=== PATIENT | female | born 1965 | race Caucasian/White ===

== ENCOUNTER 2024-01-17 17:37 | Inpatient (IN) | payer BC, SELFPAY ==
[2024-01-17] VITALS (7 sets, daily range): BP systolic 111–133; BP diastolic 60–83; PULSE 75–111; RESP 15–18; TEMP 37.6–38.3; O2SAT 97–100; BMI 21.4
[2024-01-17 18:49] LABS: Absolute Lymphocyte Count 0.98 X10^3/uL (0.83-4.51); Absolute Neutrophil Count 16.3 X10^3/uL (2.0-7.7); Basophil# 0.13 X10^3/uL; Basophil% 0.7 % (0-1); Eosinophil# 0.11 X10^3/uL; Eosinophils% 0.6 % (0-5); Hematocrit 43.1 % (37-47); Hemoglobin 14.3 g/dL (12.0-15.0); Lymphocyte # 0.98 X10^3/ul (0.83-4.51); Mean Corp Hgb Conc 33.2 g/dL (32-36); Mean Corpuscular Hgb 29.9 pg (27.0-32.0); Mean Platelet Vol. 10.4 fl (6.2-12.0); Monocyte% 9.3 % (0-10); NRBC Flagged by Analyzer 0 % (0-5); Neutrophil # 16.29 X10^3/uL (2.7-7.7); Neutrophil % 83.7 % (47-70); POSITIVE DIFFERENTIAL YES; Platelet Count 383 K/mm3 (150-450); RBC Distribution Width CV 13.1 % (11.6-14.6); Red Blood Count 4.79 M/mm3 (4.2-5.4); White Blood Count 19.4 K/mm3 (4.4-11.0)
[2024-01-17 18:52] LABS: Differential Indicated SCAN CRITERIA MET
[2024-01-17 19:05] LABS: ALB/GLOB Ratio 1.1 RATIO (0.9-2.4); AST(SGOT) 20 U/L (15-37); Alanine Aminotransfer ALT/SGPT 26 U/L (13-56); Albumin, Serum 3.7 g/dL (3.2-5.0); Alkaline Phosphatase 73 U/L (45-117); Anion Gap 8 (5-15); BUN 13 mg/dL (7-18); BUN/Creat Ratio 16.5 RATIO (10-20); Calcium,Total 9.2 mg/dL (8.5-10.1); Chloride 104 mmol/L (98-107); Creatinine, Serum 0.79 mg/dL (0.55-1.02); EST Glomerular Filtration Rate 80 mL/min (>60); Est Glom Filt Rate - Afr Amer 96 mL/min (>60); Estimated Creatinine Clearance 67.85 ml/min; Globulin 3.3 g/dL (2.2-4.2); Glucose 114 mg/dL (74-106); Lipase 54 U/L (13-75); Potassium 3.6 mmol/L (3.5-5.1); Sodium Level 136 mmol/L (136-145)
[2024-01-17 19:32] LABS: Mucous, Urine 0 SEEN /hpf (<or=2+); Red Blood Cells-Urine 0 SEEN /hpf (0-5)
[2024-01-17 19:34] LABS: Differential Comment SCANNED
[2024-01-17 19:39] LABS: Color, Urine Yellow (Yellow); Glucose, Dipstick Normal (Normal); Ketone-Dipstick Negative (Negative); Leukocyte Esterase-Dipstick 25 /ul (Negative); Nitrite-Dipstick Negative (Negative); Occult Blood-Urine 25 /ul (Negative); Protein-Dipstick Negative (Negative); Urine Bilirubin Dipstick Negative (Negative); Urine Clarity Clear (Clear); Urine Urobilinogen Normal (Normal)
[2024-01-17 20:02] LABS: Bacteria RARE /hpf (None Seen); Squamous Epithelial Cells - UA 0-5 SEEN /hpf (5-10); White Blood Cells 5-10 SEEN /hpf (0-5)
--- NOTE | 2024-01-17 20:15 | EX.ED.DYSGE1 ---
HPI History of Present Illness Chief Complaint: Abd Pain Narrative Narrative: Patient is a 58-year-old female past medical history of GERD who presents to the emergency department chief complaint of abdominal pain, fevers, chills. Patient states that on 01/01/2024 she had colon surgery of a [facility] as she had a colonoscopy and had found a polyp that they could not remove here therefore they referred her to [facility]. She states that they did not like that what they saw so they took her to the operating room removed portion of her colon and put the rest of her colon back together. Patient states that she has had diarrhea more than normal she states that she is having normal bowel movements before this. States that she has had fever and chills as well at home. States that she called the on-call [facility] colorectal team and they advised her to go to the emergency department to be evaluated. Patient denies any recent sick contacts. [facility] Medical History Acid reflux Home Medications ?Medication ?Instructions ?Recorded ?Last Taken ?Type lansoprazole 30 mg capsule,delayed 30 mg PO DAILY 01/17/24 Unknown History release Allergy/AdvReac Type Severity Reaction Status Date / Time No Known Allergies Allergy Verified 01/17/24 17:38 Surgical History History of colon surgery Social History Smoking Status: Never smoker ROS ROS ED ROS Narrative Constitutional: Complains of fever and chills as noted above denies any headaches, lightness, dizziness Eyes: Denies change in vision double vision blurry vision Cardiovascular: Denies chest pain or palpitations Respiratory: Denies coughing wheezing shortness of breath Abdomen: Complains of abdominal pain and nausea as noted above as well as diarrhea : Denies pain phonation, hematuria or polyuria Neurological: Denies numbness, weakness, tingling Musculoskeletal: Denies back pain Skin: Denies rashes or lesions EXAM Physical Exam Narrative Exam Narrative: General: Patient lying in bed rest comfortably did not appear to be in acute distress Head: Atraumatic, normocephalic Eyes: PERRL bilateral, EOMI bilateral, no conjunctival injection noted Neck: Soft, supple, trachea midline Cardiovascular: Regular rate and rhythm no murmurs gallops rubs noted Respiratory: Clear to auscultation bilaterally Abdomen: Soft, nondistended, diffuse tenderness to palpation, patient's surgical scars are well-healing no concern for infection Extremities: +5/5 strength noted in the bilateral upper and lower extremities Neurological: Patient following commands knew that she was at [facility] years 2023 Skin: Warm, dry, see abdomen Const Vital Signs: 01/17/24 17:38 01/17/24 18:43 01/17/24 19:26 Temperature 99.7 F H 99.8 F H 99.7 F H Temperature Source Oral Oral Oral Pulse Rate 111 H 110 H 98 Respiratory Rate 15 16 16 Blood Pressure 133/83 H 130/80 H 114/74 Blood Pressure Mean 99 96 87 Pulse Ox 100 97 99 Oxygen Delivery Method Room Air Room Air Room Air 01/17/24 20:00 01/17/24 20:46 01/17/24 22:00 Temperature 99.6 F H 99.6 F H 100.5 F H Temperature Source Oral Oral Oral Pulse Rate 75 78 81 Respiratory Rate 16 16 18 Blood Pressure 112/79 113/75 112/60 Blood Pressure Mean 90 87 77 Pulse Ox 99 99 97 Oxygen Delivery Method Room Air Room Air Room Air 01/17/24 22:48 Temperature 101 F H Temperature Source Oral Pulse Rate 91 Respiratory Rate 18 Blood Pressure 111/71 Blood Pressure Mean 84 Pulse Ox 97 Oxygen Delivery Method Room Air MDM MDM MDM Narrative Medical decision making narrative: Patient is a 58-year-old female who presents to the emergency department chief complaint of abdominal pain, fever and chills after recent colorectal surgery at the [facility]. Patient will have a workup performed here on the differential diagnose includes but not limited to intra-abdominal abscess, anastomosis leak, COVID, other viral gastroenteritis. Once workup is obtained reviewed she will be reevaluated. Patient CBC was significant for leukocytosis of 19,000, hemoglobin stable at 14.3, platelet count normal at 383. Patient sodium normal at 136, potassium normal 3.6, creatinine normal at 0.79. Patient lactic acid normal at 2, AST and ALT were 2025 respectively. Patient's lipase normal at 54. Patient's urinalysis did not reveal any evidence of infection. Patient CT abdomen pelvis with IV contrast reviewed showed suspect infectious colitis likely pseudomembranous colitis. No abscess or perforation noted. Will discuss case with on-call colorectal surgery. Patient did become febrile here she was given a gram of Tylenol. Colorectal surgery from [facility] called back I spoke with Dr. Mcbride who states that this is not a postoperative complication and she can be admitted to the hospital therefore oral vancomycin. Oral vancomycin was ordered. This case was signed out to my partner and he will discuss case with hospitalist for admission. Patient was notified is agreeable to plan all question concerns answered bedside Lab Data Labs: Laboratory Results - last 24 hr 01/17/24 01/17/24 01/17/24 18:05 19:23 22:51 WBC 19.4 H RBC 4.79 Hgb 14.3 Hct 43.1 MCV 90.0 MCH 29.9 MCHC 33.2 RDW Std Deviation 43.0 RDW Coeff of Tucker 13.1 Plt Count 383 MPV 10.4 Immature Gran % (Auto) 0.700 Neut % (Auto) 83.7 H Lymph % (Auto) 5.0 L [place] % (Auto) 9.3 Eos % (Auto) 0.6 Baso % (Auto) 0.7 Absolute Neuts (auto) 16.3 H Absolute Lymphs (auto) 0.98 Nucleated RBC % 0 Differential Comment SCANNED Diff Path Review May foll Sodium 136 Potassium 3.6 Chloride 104 Carbon Dioxide 24.0 Anion Gap 8 BUN 13 Creatinine 0.79 Estim Creat Clear Calc 67.85 Est GFR (MDRD) Af Amer 96 Est GFR (MDRD) Non-Af 80 BUN/Creatinine Ratio 16.5 Glucose 114 H Lactic Acid 2.0 1.4 Calcium 9.2 Total Bilirubin 1.00 AST 20 ALT 26 Alkaline Phosphatase 73 Total Protein 7.0 Albumin 3.7 Globulin 3.3 Albumin/Globulin Ratio 1.1 Lipase 54 Urine Color Yellow Urine Clarity Clear Urine pH 7.0 Ur Specific [place] 1.010 Urine Protein Negative Urine Glucose (UA) Normal Urine Ketones Negative Urine Occult Blood 25 H Urine Nitrite Negative Urine Bilirubin Negative Urine Urobilinogen Normal Ur Leukocyte Esterase 25 H Urine RBC 0 SEEN Urine WBC 5-10 SEEN Ur Squamous Epith Cells 0-5 SEEN Urine Bacteria RARE Urine Mucus 0 SEEN Radiography Diagnostic Testing: Clinical Impression(s) from Imaging Studies Abdomen/Pelvis CT 01/17/24 20:18 IMPRESSION: Suspect infectious colitis, likely pseudomembranous colitis. No abscess or perforation. Electronically Signed: Tyrell Hernandez MD at 22:40 EDT , Discharge Plan Triage Chief Complaint: Abd Pain ED Provider: Jonathan Gonzalez Dx/Rx/DC Orders Prescriptions: No Action lansoprazole 30 mg capsule,delayed release(DR/EC) 30 mg PO DAILY Primary Care Provider: Kaitlin Torres Referrals: Kaitlin Torres MD [Primary Care Provider] - Print Language: Ukrainian
--- NOTE | 2024-01-17 20:18 | CT_ITS ---
STUDY: CT ABDOMEN AND PELVIS WITH CONTRAST REASON FOR EXAM: Female, 58 years old. Abdominal pain recent surgery RADIATION DOSAGE (If Supplied By Facility): CTDIvol = ( 8.26 ) mGy, DLP = ( 406.76 ) mGycm TECHNIQUE: Transaxial images were obtained from the dome of the diaphragm to the symphysis pubis with oral contrast. Oral and amp; IV Gastrografin and amp; 75mL Isovue-370 was administered. Sagittal and coronal images were reconstructed. Individualized dose optimization techniques were used for this CT. COMPARISON: None. FINDINGS: The visualized lung bases are unremarkable. The visualized portions of the heart are within normal limits. Normal liver. Normal gallbladder and extrahepatic biliary system. Normal spleen. Normal pancreas. Normal bilateral adrenal glands. Normal right kidney. Normal left kidney. Normal visualized stomach. Normal small intestine. Suture line in the proximal sigmoid colon. Diffuse wall thickening of the entire colon suggestive of infectious colitis namely pseudomembranous colitis. No loculated fluid collection to stress abscess. No pneumoperitoneum to stress perforation. The appendix is visualized and appears normal. Normal abdominal aorta. Normal inferior vena cava. Normal retroperitoneum. Normal urinary bladder. Normal abdominal wall. Normal osseous structures. CT/Abdomen/Pelvis WITH Contrast IMPRESSION: Suspect infectious colitis, likely pseudomembranous colitis. No abscess or perforation. Electronically Signed: Tyrell Hernandez MD at 22:40 EDT ,
[2024-01-17 22:46] LABS: Reflex Lactate? Y
[2024-01-17] MEDS: Acetaminophen 500 MG Tablet 1000 MG PO (22:46)
[2024-01-17 23:53] LABS: Lactic Acid 1.4 mmol/L (0.4-1.9)
[2024-01-18] VITALS (7 sets, daily range): BP systolic 98–108; BP diastolic 56–68; PULSE 64–81; RESP 16–18; TEMP 36.6–37.7; O2SAT 93–99; BMI 20.5
--- NOTE | 2024-01-18 00:34 | PCM.HP.STD ---
HPI - General General Date of Admission: 01/18/24 Date of Service: 01/18/24 Chief Complaint: Fevers, Chills and Abdominal Pain. HPI Narrative MICHI MARSHALL, is a 58 F with a past medical history of GERD; on lansoprazole and recent colonoscopy; with subsequent discovery of polyp and recent polypectomy at [facility] with the patient reporting the colorectal surgeon did not like what he saw so they took her to the OR and removed part of her colon who presents to [facility] ER complaining of fever, chills and abdominal pain. Ms. Marshall reports her symptoms began approximately one day prior to admission with the abrupt-onset of severe, voluminous watery and nonbloody diarrhea. She also admits to fever, chills and nausea so she then called the [facility] Colorectal Team and they advised her to go to the ER for further evaluation and treatment. There was no report of vomiting, dysuria, back pain, headache, chest pain or SOB but she does admit to generalized cramping abdominal pain. She denies recent known sick contacts, recent antibiotics or recent travel. The ER physician spoke to the colorectal surgeon about the CT results positive for colitis - suspected to be of infectious origin with leukocytosis of 19.4K present on admission with PCR stool studies returning positive for Clostridium difficle. She was then admitted to the general medical floor for ongoing care for a stay that is expected to extend beyond 2 midnights. [facility] Medical History Acid reflux Home Medications ?Medication ?Instructions ?Recorded ?Last Taken ?Type lansoprazole 30 mg capsule,delayed 30 mg PO DAILY 01/17/24 Unknown History release Allergy/AdvReac Type Severity Reaction Status Date / Time No Known Allergies Allergy Verified 01/17/24 17:38 Surgical History History of colon surgery Social History Smoking Status: Never smoker ROS ROS Narrative Review of Systems: Constitutional: Patient admits to fever and chills as per HPI. Eyes: Patient denies changes in vision or discharge from eyes. ENT: Patient denies runny nose, sore throat or ear pain. Resp: Patient denies SOB or cough. CV: Patient denies chest pain, palpitations or heart racing. GI: Patient admits to generalized abdominal pain, nausea, vomiting and nonbloody diarrhea as per HPI. : Patient denies dysuria or hematuria. MSK: Patient denies arthralgias or myalgias. Skin: Patient denies rash, abscess or jaundice. Psych: Patient denies symptoms of uncontrolled depression or anxiety. Neuro: Patient denies headache, paresthesias or focal neurologic weakness. Hematology: Patient denies easy bleeding or easy bruisability. Endocrinology: Patient denies polyuria, polydipsia or polyphagia. 14 point ROS otherwise negative except for positives noted above in HPI. Vital Signs Vital Signs Vital Signs: 01/17/24 17:38 01/17/24 18:43 01/17/24 19:26 Temperature 99.7 F H 99.8 F H 99.7 F H Temperature Source Oral Oral Oral Pulse Rate 111 H 110 H 98 Respiratory Rate 15 16 16 Blood Pressure 133/83 H 130/80 H 114/74 Blood Pressure Mean 99 96 87 Pulse Ox 100 97 99 Oxygen Delivery Method Room Air Room Air Room Air 01/17/24 20:00 01/17/24 20:46 01/17/24 22:00 Temperature 99.6 F H 99.6 F H 100.5 F H Temperature Source Oral Oral Oral Pulse Rate 75 78 81 Respiratory Rate 16 16 18 Blood Pressure 112/79 113/75 112/60 Blood Pressure Mean 90 87 77 Pulse Ox 99 99 97 Oxygen Delivery Method Room Air Room Air Room Air 01/17/24 22:48 01/18/24 00:00 Temperature 101 F H 99.5 F H Temperature Source Oral Oral Pulse Rate 91 77 Respiratory Rate 18 16 Blood Pressure 111/71 108/66 Blood Pressure Mean 84 80 Pulse Ox 97 97 Oxygen Delivery Method Room Air Room Air Weight Weight: 125 lb 3.2 oz Body Mass Index (BMI) 21.4 Physical Exam Const alert, oriented x3 and average body habitus General Appearance: cooperative HEENT normocephalic, head/scalp atraumatic, hearing grossly normal bilaterally and moist oral mucous membranes Eyes PERRL and EOMs intact bilaterally Neck no lymphadenopathy and supple Resp normal respiratory effort, no retractions, no use of accessory muscles and clear to auscultation bilaterally Cardio regular rate and regular rhythm GI normal to inspection, nondistended, normoactive bowel sounds, soft to palpation, non-tender and non-distended Extremity normal to inspection, full ROM and no clubbing, cyanosis or edema Neuro oriented x3, CN's II-XII intact bilaterally, moves all extremities and no focal motor deficits Sensorium / Orientation: awake, alert, oriented to person, oriented to place and oriented to time Speech: speech normal Psych affect normal Results Medical Records Data Attestation: I reviewed the patient's medical records Lab / Micro Data Attestation: I reviewed the patient's lab results. 01/18/24 05:20 01/18/24 05:20 Labs: Laboratory Results - last 24 hr 01/17/24 18:05: WBC 19.4 H, RBC 4.79, Hgb 14.3, Hct 43.1, MCV 90.0, MCH 29.9, MCHC 33.2, RDW Std Deviation 43.0, RDW Coeff of Tucker 13.1, Plt Count 383, MPV 10.4, Immature Gran % (Auto) 0.700, Neut % (Auto) 83.7 H, Lymph % (Auto) 5.0 L, [place] % (Auto) 9.3, Eos % (Auto) 0.6, Baso % (Auto) 0.7, Absolute Neuts (auto) 16.3 H, Absolute Lymphs (auto) 0.98, Nucleated RBC % 0, Differential Comment SCANNED, Diff Path Review August, Sodium 136, Potassium 3.6, Chloride 104, Carbon Dioxide 24.0, Anion Gap 8, BUN 13, Creatinine 0.79, Estim Creat Clear Calc 67.85, Est GFR (MDRD) Af Amer 96, Est GFR (MDRD) Non-Af 80, BUN/Creatinine Ratio 16.5, Glucose 114 H, Lactic Acid 2.0, Calcium 9.2, Total Bilirubin 1.00, AST 20, ALT 26, Alkaline Phosphatase 73, Total Protein 7.0, Albumin 3.7, Globulin 3.3, Albumin/Globulin Ratio 1.1, Lipase 54 01/17/24 19:23: Urine Color Yellow, Urine Clarity Clear, Urine pH 7.0, Ur Specific [place] 1.010, Urine Protein Negative, Urine Glucose (UA) Normal, Urine Ketones Negative, Urine Occult Blood 25 H, Urine Nitrite Negative, Urine Bilirubin Negative, Urine Urobilinogen Normal, Ur Leukocyte Esterase 25 H, Urine RBC 0 SEEN, Urine WBC 5-10 SEEN, Ur Squamous Epith Cells 0-5 SEEN, Urine Bacteria RARE, Urine Mucus 0 SEEN 01/17/24 22:51: Lactic Acid 1.4 Imaging Radiology Impression Abdomen/Pelvis CT 01/17/24 20:18 IMPRESSION: Suspect infectious colitis, likely pseudomembranous colitis. No abscess or perforation. Electronically Signed: Tyrell Hernandez MD at 22:40 EDT , Assessment & Plan Assessment/Plan (1) Clostridium difficile infection: (2) Infectious colitis: (3) History of colonoscopy with polypectomy: (4) GERD (gastroesophageal reflux disease): QUALIFIERS: Esophagitis presence: esophagitis presence not specified Qualified Code(s): K21.9 - Gastro-esophageal reflux disease without esophagitis PLAN: Plan 1. Acute Infectious Colitis due to Clostridium difficile; after recent polypectomy in OR with partial colon resection on January 01, 2024 done at [facility] with diarrhea with patient developing diarrhea one day prior to admission with Leukocytosis of 19.4k present on admission - Admit to general medical floor. Continue oral vancomycin and add Flagyl IV while we await stools studies to fully confirm diagnosis. Give probiotic replace normal [place]. Give Zofran IV prn nausea. Give Tylenol prn for [id number] (level 1-5/10) pain or fever. Give Morphine IV prn for severe (level 6-10/10) pain. 2. GERD complicating #1 - Continue with Protonix 40 mg IV daily. 3. DVT prophylaxis - Lovenox 40 mg sq daily plus SCD's. Total time: Approximately 40 minutes. Charges/Coding Visit Charges Inpatient E&M: 01193 Init Hosp L1
[2024-01-18] MEDS: Vancomycin 125 MG/5 ML Susp PO.SYRINGE PO ×5 (00:42→23:26)
[2024-01-18] MEDS: metroNIDAZOLE 500 MG/100 ML BAG 100 MG IV ×3 (02:16→20:48)
[2024-01-18] MEDS: 0.9% Normal Saline (1000mL) 1,000 ML 70 ML IV (02:16)
[2024-01-18 05:45] LABS: Absolute Lymphocyte Count 1.09 X10^3/uL (0.83-4.51); Absolute Neutrophil Count 12.5 X10^3/uL (2.0-7.7); Basophil# 0.11 X10^3/uL; Basophil% 0.7 % (0-1); Eosinophil# 0.05 X10^3/uL; Eosinophils% 0.3 % (0-5); Hematocrit 40.3 % (37-47); Hemoglobin 13.3 g/dL (12.0-15.0); Lymphocyte # 1.09 X10^3/ul (0.83-4.51); Lymphocyte % 7.2 % (19-41); Mean Corpuscular Hgb 29.4 pg (27.0-32.0); Mean Corpuscular Volume 89.2 fL (81-99); Mean Platelet Vol. 10.3 fl (6.2-12.0); Monocyte# 1.41 X10^3/uL; Monocyte% 9.3 % (0-10); NRBC Flagged by Analyzer 0 % (0-5); Neutrophil # 12.46 X10^3/uL (2.7-7.7); Neutrophil % 82.1 % (47-70); Platelet Count 344 K/mm3 (150-450); RBC Distribution Width CV 13.2 % (11.6-14.6); Red Blood Count 4.52 M/mm3 (4.2-5.4); White Blood Count 15.2 K/mm3 (4.4-11.0)
[2024-01-18 06:42] LABS: ALB/GLOB Ratio 1.1 RATIO (0.9-2.4); AST(SGOT) 16 U/L (15-37); Alanine Aminotransfer ALT/SGPT 23 U/L (13-56); Albumin, Serum 3.3 g/dL (3.2-5.0); Alkaline Phosphatase 68 U/L (45-117); Anion Gap 5 (5-15); BUN 8 mg/dL (7-18); BUN/Creat Ratio 12.3 RATIO (10-20); Calcium,Total 9.1 mg/dL (8.5-10.1); Chloride 109 mmol/L (98-107); Creatinine, Serum 0.65 mg/dL (0.55-1.02); EST Glomerular Filtration Rate 100 mL/min (>60); Est Glom Filt Rate - Afr Amer 121 mL/min (>60); Estimated Creatinine Clearance 82.46 ml/min; Globulin 3.1 g/dL (2.2-4.2); Glucose 104 mg/dL (74-106); Magnesium 1.8 mg/dL (1.6-2.6); Potassium 3.8 mmol/L (3.5-5.1); Protein, Total 6.4 g/dL (6.4-8.2); Sodium Level 138 mmol/L (136-145); Thyroid Stim Hormone (TSH) 0.752 uIU/mL (0.358-3.740)
[2024-01-18] MEDS: Lactobacillis Acidophilus 1 CAP PO ×4 (09:01→20:48)
[2024-01-18] MEDS: Ensure Plus High Protein 120 ML LIQUID PO ×2 (09:02→11:45)
[2024-01-18] MEDS: Pantoprazole Sodium 40 MG in 0.9% Normal Saline (100mL MB+) 100 ML 330 MG IV (09:02)
--- NOTE | 2024-01-18 15:00 | PCM.HOSP.N ---
Hospitalist Note 58-year-old female with recent surgery at [facility]. Has had antibiotic exposure. came in with less than 24 hours of voluminous watery diarrhea and crampy abdominal pain. C. difficile sent and only PCR positive but with ongoing abdominal pain and significant watery diarrhea I highly suspect that this is a C. difficile infection rather than colonization. Patient presented in less than 24 hours after symptoms initiated. Patient has never had C. difficile before. On oral vancomycin and cramping is better. White count is trending down. Will repeat CBC in a.m. Anticipate discharge on 01/19/2024.
[2024-01-19] MEDS: metroNIDAZOLE 500 MG/100 ML BAG 100 MG IV (05:33)
[2024-01-19] MEDS: Vancomycin 125 MG/5 ML Susp PO.SYRINGE PO ×2 (05:34→12:07)
[2024-01-19 05:39] VITALS: BP 108/65; PULSE 56; RESP 16; TEMP 36.7; O2SAT 98
[2024-01-19 05:40] VITALS: BMI 20.6
[2024-01-19 06:09] LABS: Absolute Lymphocyte Count 2.06 X10^3/uL (0.83-4.51); Absolute Neutrophil Count 5.5 X10^3/uL (2.0-7.7); Basophil# 0.11 X10^3/uL; Basophil% 1.2 % (0-1); Eosinophil# 0.24 X10^3/uL; Eosinophils% 2.7 % (0-5); Hematocrit 37.8 % (37-47); Hemoglobin 12.3 g/dL (12.0-15.0); Lymphocyte # 2.06 X10^3/ul (0.83-4.51); Lymphocyte % 23.1 % (19-41); Mean Corp Hgb Conc 32.5 g/dL (32-36); Mean Corpuscular Hgb 29.5 pg (27.0-32.0); Mean Corpuscular Volume 90.6 fL (81-99); Mean Platelet Vol. 10.5 fl (6.2-12.0); Monocyte# 1.03 X10^3/uL; Monocyte% 11.5 % (0-10); NRBC Flagged by Analyzer 0 % (0-5); Neutrophil # 5.45 X10^3/uL (2.7-7.7); Neutrophil % 61.1 % (47-70); Platelet Count 312 K/mm3 (150-450); RBC Distribution Width CV 13.2 % (11.6-14.6); RBC Distribution Width SD 44.1 fl (35.1-43.9); Red Blood Count 4.17 M/mm3 (4.2-5.4); White Blood Count 8.9 K/mm3 (4.4-11.0)
[2024-01-19 07:58] VITALS: BP 109/71; PULSE 55; RESP 15; TEMP 36.6; O2SAT 96
--- NOTE | 2024-01-19 09:45 | CASEMGMT ---
BOGDAN WOODRUFF Assessment: Face to Face with pt for initial transition planning/care coordination assessment. BOGDAN WOODRUFF introduced self and role at [facility], pt voices understanding and consents to assessment. Pt is A&O x4 and answers all questions appropriately at this time. Care providers, pharmacy, and demographics verified/updated. Strata: 1 Admitting Dx: Acute infectious colitis PCP: Brian Specialists: Suzette, Traffic Worker; Alia gastrologist Preferred Pharmacy: [facility] Insurance: [place] Prescription Benefit: yes LNOK: Living Arrangements: Pt lives with in a 1 story home with 2 steps to enter. ADLs: Pt reports I with ADLs and IADLs at home. Transportation: Pt drives self and denies concerns with transportation. DME: Pt denies HHC/SNF: Denies hx of. Pt states no concerns with going home at time of dc. Pt states no further concerns/needs. CM to follow. Advised pt to ask CM if any further question/concerns/needs arise, voices understanding. Pt Goal: Home Plan: Home, follow plan of care. Amaya MCFADDEN CM
[2024-01-19] MEDS: 0.9% Saline Lock 10 ML Syringe IV ×2 (10:48→10:55)
[2024-01-19] MEDS: Lactobacillis Acidophilus 1 CAP PO (10:54)
--- NOTE | 2024-01-19 11:55 | DCINST_ITS ---
Discharge Instructions Diet Discharge Diet: - (Continue low fiber diet) Activity Discharge Activity: Return to Normal Activity Weight Bearing Status: Full weight bearing Follow Up Care Test Results: Test results from this visit will be discussed in further detail at your follow- up appointment, if applicable. Discharge Plan Admission Admit Date/Time: 01/18/24 01:03 Primary Reason for Your Visit: C. difficile colitis Attending Provider: Adan Arredondo Primary Care Provider: Kaitlin Torres Consulting Providers: Pedro Harris; Janette Goddard Discharge Orders/Prescriptions Prescriptions: New vancomycin 125 mg capsule 125 mg PO Q6H 10 Days Qty: 40 0RF Continued lansoprazole 30 mg capsule,delayed release(DR/EC) 30 mg PO DAILY Referrals / Follow Up: Kaitlin Torres MD [Primary Care Provider] - Within 2 Weeks Disposition Disposition (needs filled in before D/C Order can be placed): Home, Self Care
--- NOTE | 2024-01-19 11:58 | PCM.DC.SUM ---
Providers Date of Admission: 01/18/24 Date of Discharge: 01/19/24 Primary Care Physician: Dr. Kaitlin Torres MD Reason For Visit: ACUTE INFECTIOUS COLITIS Diagnosis Discharge Diagnosis (1) Clostridium difficile infection: Status: Acute Code(s): A49.8 - Other bacterial infections of unspecified site (2) Infectious colitis: Status: Acute Code(s): A09 - Infectious gastroenteritis and colitis, unspecified (3) History of colonoscopy with polypectomy: Status: Acute Code(s): Z98.890 - Other specified postprocedural states; Z86.0100 - Personal history of colon polyps, unspecified (4) GERD (gastroesophageal reflux disease): Status: Acute Code(s): K21.9 - Gastro-esophageal reflux disease without esophagitis Qualifiers: Esophagitis presence: esophagitis presence not specified Qualified Code(s): K21.9 - Gastro-esophageal reflux disease without esophagitis Plan Final diagnosis #1 C. difficile colitis #2 GERD Medications at Discharge Home Medications lansoprazole 30 mg capsule,delayed release 30 mg PO DAILY 01/17/24 vancomycin 125 mg capsule 125 mg PO Q6H 10 days #40 caps 01/19/24 Hospital Course Operations None Procedures None Summary of Care Provided Minutes Spent on Discharge: 30 Hospital Course: This 58-year-old white female was seen in the emergency room at [facility] with a chief complaint of fevers, chills, and abdominal pain. She recently underwent a partial colectomy due to presence of the polyp in her colon, she now complains of recent onset of watery nonbloody diarrhea and fever chills and nausea. CT scan was obtained which showed evidence of colitis, labs showed an elevated white blood cell count of 19.4, PCR stool studies were positive for C. difficile but the toxin was not present. It was decided that the patient had active C. difficile colitis based on her presentation, she was admitted to [place] [address] and given oral vancomycin and IV Flagyl. Patient's symptoms improved during her hospitalization. On 01/19/2024, patient was seen and examined: On examination she appeared in good health and spirits, she does not appear to be in any distress. Vital signs as documented. Skin warm and dry and without overt rashes. Neck without JVD, thyroid appears normal, trachea is midline, neck is supple. Lungs clear, normal air movement was noted. Heart exam notable for regular rhythm, normal sounds and absence of murmurs, rubs or gallops. Abdomen unremarkable and without evidence of organomegaly, masses, or abdominal aortic enlargement, bowel sounds are present in all 4 quadrants, no abdominal tenderness was noted. Extremities nonedematous, no cyanosis was noted, no clubbing was noted. Neuro: Cranial nerves II through XII are grossly intact, no focal motor deficits were noted, sensation to light touch and pinprick is intact, motor exam 5/5 throughout. Psych: Patient is alert and oriented x3, she does not appear anxious or depressed, she does not appear agitated. Patient was felt to be stable for discharge home on 01/19/2024. Weight / BMI Weight Weight: 54.8 kg Body Mass Index (BMI) 20.6 ABG / Lab / Microbiology Data 01/19/24 05:17 01/18/24 05:20 Laboratory: Laboratory Results - last 24 hr 01/19/24 05:17: WBC 8.9, RBC 4.17 L, Hgb 12.3, Hct 37.8, MCV 90.6, MCH 29.5, MCHC 32.5, RDW Std Deviation 44.1 H, RDW Coeff of Tucker 13.2, Plt Count 312, MPV 10.5, Immature Gran % (Auto) 0.400, Neut % (Auto) 61.1, Lymph % (Auto) 23.1, [place] % (Auto) 11.5 H, Eos % (Auto) 2.7, Baso % (Auto) 1.2 H, Absolute Neuts (auto) 5.5, Absolute Lymphs (auto) 2.06, Nucleated RBC % 0 Microbiology: Microbiology 01/17/24 23:39 Stool Stool Lactoferrin - Final 01/17/24 23:39 Stool Enteric Bacteriology - Final 01/17/24 23:39 Interface Orders C. difficile GDH Antigen & Toxins - Final 01/17/24 23:39 Interface Orders Clostridioides difficile (PCR) - Final D/C Instructions Discharge Diet: - (Continue low fiber diet) Weight Bearing Status: Full weight bearing Meaningful Use Info Meaningful Use Meaningful Use Diagnoses (Choose all that apply): None applicable Ischemic Stroke Statin Dosing Therapy Reference: STATIN DOSE THERAPY REFERENCE: * Patients > 75 years receive moderate or high dose statin therapy. * Patients 75 years or YOUNGER should receive HIGH intensity statin dose unless contraindicated. You will be required to document reason for non-treatment if statin daily dose does not meet guidelines. HIGH DOSE STATIN THERAPY DAILY Atorvastatin > than or = to 40 mg Rosuvastatin > than or = to 20 mg Amlodipine + Atorvastatin > than or = to 2.5/40 mg Ezetimibe + Simvastatin 10/80 mg Simvastatin 80mg Discharge Plan Admission Admit Date/Time: 01/18/24 01:03 Primary Reason for Your Visit: C. difficile colitis Attending Provider: Adan Arredondo Primary Care Provider: Kaitlin Torres Consulting Providers: Pedro Harris; Janette Goddard Discharge Orders/Prescriptions Prescriptions: New vancomycin 125 mg capsule 125 mg PO Q6H 10 Days Qty: 40 0RF Continued lansoprazole 30 mg capsule,delayed release(DR/EC) 30 mg PO DAILY Referrals / Follow Up: Kaitlin Torres MD [Primary Care Provider] - Within 2 Weeks Disposition Disposition (needs filled in before D/C Order can be placed): Home, Self Care Charges/Coding Visit Charges Inpatient E&M: 77247 Disch Hosp
--- NOTE | 2024-01-19 12:19 | CASEMGMT ---
TC to [facility] pharmacy, cost of vancomycin is $10 and no PA needed.
[2024-01-19 13:38] LABS: Pathologist Review Reviewed
== END 2024-01-19 13:29 | disposition home or self-care (01) | DRG 373 ==
LOC: ED 18:44 → MS3 01-18 04:22
PROVIDERS: Internal Medicine; Admitting Provider Internal Medicine; Emergency Provider Emergency Medicine; PCP Internal Medicine; Visit Provider Internal Medicine
DX: A04.72 Enterocolitis due to Clostridium difficile, not specified as recurrent (principal); K21.9 Gastro-esophageal reflux disease without esophagitis; Z86.0100 Personal history of colon polyps, unspecified; Z90.49 Acquired absence of other specified parts of digestive tract
CPT/HCPCS: 36415; 74177; 80053; 81001; 83605; 83630; 83690; 83735; 84100; 84443; 85025; 87177; 87209; 87493; 87506; 97802; 99285; J7030; Q9967; A4216

== ENCOUNTER 2024-02-08 07:42 | Emergency (ER) | payer BC, SELFPAY ==
[2024-02-08 07:43] VITALS: BP 95/60; PULSE 112; RESP 16; TEMP 37; O2SAT 100; BMI 21.1
--- NOTE | 2024-02-08 08:11 | CT_ITS ---
STUDY: CT ABDOMEN AND PELVIS WITH CONTRAST - URINARY TRACT REASON FOR EXAM: Female, 58 years old. Abdominal pain S/P partial D colectomy CDiff -- IV PO Contrast RADIATION DOSAGE (If Supplied By Facility): CTDIvol = ( 9.76 ) mGy, DLP = ( 458.30 ) mGycm TECHNIQUE: Oral and amp; IV Gastrografin and amp; 75mL Isovue-370 was administered. Transaxial images were obtained from the dome of the diaphragm to the symphysis pubis in the arterial, nephrographic and excretory phases. Multiplanar coronal and sagittal images were reformatted. The protocol utilizes one or more of the following dose reduction techniques: automated exposure control, adjustment of mA and/or kV according to patient size,and/or use of iterative reconstruction technique. COMPARISON: January 17, 2024 FINDINGS: The visualized lung bases are unremarkable. The visualized portions of the heart are within normal limits. Normal liver. Normal gallbladder and extrahepatic biliary system. Normal spleen. Normal pancreas. Normal bilateral adrenal glands. Normal visualized stomach. Normal small intestine. There is grossly stable circumferential wall thickening of the colon and rectum. There is evidence of prior partial colectomy. The appendix is visualized and appears normal. Normal abdominal aorta. No retroperitoneal adenopathy. Normal right kidney. There is a stable left renal cyst. Normal urinary bladder. Normal abdominal wall. There are diffuse degenerative changes of the visualized lumbar spine. CT/Abdomen/Pelvis WITH Contrast IMPRESSION: Stable proctocolitis. Electronically Signed: Francesca Stock MD at 10:19 EST ,
--- NOTE | 2024-02-08 08:14 | EDS_ITS ---
HPI HPI - GI History of Present Illness Chief Complaint: Abd Pain Informant: patient and spouse/S.O. Narrative Narrative: 58-year-old female presenting to the emergency room with suprapubic abdominal pain. Patient states symptoms been present for the past 3 days. She describes it as sharp stabbing achy pressure. She notes that she has had an increase in the amount of diarrhea over the past couple days but states that is also intersp ersed with formed stool. She denies any dysuria urinary frequency or hematuria. She recently underwent colonoscopy was found to have a polyp and subsequently had partial colectomy of the descending colon. Polyp was found to be cancerous and she is supposed to start chemotherapy ([facility]). Patient's postoperative course was complicated with C. difficile colitis. She states that that required addit ional hospitalization and she subsequently recovered and completed her oral antibiotics. She had been doing well until this episode. [facility] Medical History Clostridium difficile infection Infectious colitis Acid reflux Home Medications ?Medication ?Instructions ?Recorded ?Last Taken ?Type Lactobacillus acidophilus and 1 cap PO DAILY 02/08/24 02/07/24 History rhamnosus 15 billion cell capsule (Florajen Women) famotidine 20 mg tablet 20 mg PO BID PRN 02/08/24 02/08/24 History glucosamine-chondroitin 250 mg-200 1 tab PO DAILY 02/08/24 02/07/24 History mg tablet (Osteo Bi-Flex) ibuprofen 200 mg tablet (Advil) 400 mg PO Q8H PRN pain 02/08/24 02/07/24 History multivitamin (Daily Multi-Vitamin 1 tab PO DAILY 02/08/24 02/07/24 History tablet) omega 3 350 mg-dha 235 mg-epa 90 1 cap PO DAILY 02/08/24 02/07/24 History mg-fish oil 597 mg capsule,delay rel ([place]-3) oxycodone-acetaminophen 5 mg-325 1 tab PO Q6H PRN PRN Pain 3 days 02/08/24 Unknown Rx mg tablet #12 TABLETS Allergy/AdvReac Type Severity Reaction Status Date / Time No Known Allergies Allergy Verified 02/08/24 07:42 Surgical History History of colonoscopy with polypectomy History of colon surgery Social History Smoking Status: Never smoker ROS ROS ED Constitutional Constitutional ED: Denies chills, fever(s) or weight loss Eyes Eyes: Denies change in vision or diplopia ENT ENT ED: Denies ear pain, rhinorrhea or sore throat Cardiovascular Cardiovascular: Denies chest pain, orthopnea, palpitations or racing heartbeat Respiratory/Chest Respiratory/Chest: Denies cough, dyspnea or orthopnea Gastrointestinal Gastrointestinal: Reports abdominal pain and diarrhea; Denies nausea or vomiting Genitourinary Genitourinary ED: Denies dysuria, hematuria or urinary frequency Musculoskeletal Musculoskeletal: Denies arthralgias, back pain or myalgias Integumentary Denies abscess or rash Neurologic Neurologic: Denies headache(s) or weakness Psychiatric Psychiatric: Denies anxiety, depression, suicidal ideation or suicidal thoughts Endocrine Endocrinology: Denies polydipsia, polyphagia or polyuria Allergic/Immunologic Allergic/Immunologic ED: Denies mouth swelling, tongue swelling or urticaria EXAM Physical Exam Const Vital Signs: 02/08/24 07:43 02/08/24 09:42 02/08/24 11:00 Temperature 98.6 F Temperature Source Oral Pulse Rate 112 H 64 64 Respiratory Rate 16 18 18 Blood Pressure 95/60 104/78 128/76 H Blood Pressure Mean 71 86 93 Pulse Ox 100 98 98 Oxygen Delivery Method Room Air Room Air Room Air Positive well nourished and well developed General Appearance ED: well developed and NAD HEENT Reports normocephalic, head/scalp atraumatic and moist mucous membranes Eyes PERRL and EOMs intact bilaterally Neck no lymphadenopathy, supple and no JVD Resp normal respiratory effort and clear to auscultation bilaterally Cardio regular rate, regular rhythm and no murmurs Rate: tachycardic GI non-tender GI Narrative: There are healing surgical incisions. I do not appreciate any drainage or erythema. No hernia. Inspection: Negative for abdominal distention Auscultation: normoactive bowel sounds Palpation: soft, tender suprapubic and guarding; Negative for rigid or rebound tenderness present Back/Spine no CVA tenderness and normal ROM Extremity normal to inspection General Extremety ED: Negative for edema General Extremity: Negative for edema Neuro oriented x3 and CN's II-XII intact bilaterally Sensorium / Orientation: alert Motor Exam: strength 5/5 throughout Psych mental status grossly normal Mood & Affect: Negative for depressed or tearful Skin no rashes or lesions noted and no wounds MDM MDM MDM Narrative Medical decision making narrative: Differential diagnosis includes but not limited to colitis pelvic abscess C. difficile infection UTI ureterolithiasis White count 9.7 hemoglobin 13.5 platelet count of 337 BMP within normal limits liver panel demonstrates a total bilirubin 2.3 direct bilirubin 0.38 normal LFTs. Urinalysis with no overt infection. No gross hematuria noted. CT of the pelvis with oral and IV contrast was obtained. This demonstrates stable thickening of the rectal sigmoid region. No abscess is seen. Please see radiologist read for full details. Case was discussed with the on-call colorectal surgeon from [facility]. They are recommending against antibiotics at this time. I will write for the patient have pain medication. They recommend that if the patient is still having symptoms tomorrow to call the office for early follow-up. Patient and her family are comfortable with this plan History & Record Review Discussion w/independent historian: Patient and Family Additional record(s) reviewed:: Prior ED visit and Prior labs Lab Data Attestation: I reviewed the patient's lab results. Labs: Laboratory Results - last 24 hr 02/08/24 02/08/24 08:20 08:28 WBC 9.7 RBC 4.48 Hgb 13.5 Hct 40.3 MCV 90.0 MCH 30.1 MCHC 33.5 RDW Std Deviation 42.6 RDW Coeff of Tucker 13.0 Plt Count 337 MPV 10.8 Immature Gran % (Auto) 0.300 Neut % (Auto) 64.0 Lymph % (Auto) 21.3 [place] % (Auto) 12.9 H Eos % (Auto) 0.9 Baso % (Auto) 0.6 Absolute Neuts (auto) 6.2 Absolute Lymphs (auto) 2.06 Nucleated RBC % 0 Sodium 140 Potassium 3.8 Chloride 106 Carbon Dioxide 26.0 Anion Gap 7 BUN 8 Creatinine 0.82 Estim Creat Clear Calc 65.36 Est GFR (MDRD) Af Amer 93 Est GFR (MDRD) Non-Af 76 BUN/Creatinine Ratio 9.8 L Glucose 96 Calcium 9.2 Total Bilirubin 2.30 H Direct Bilirubin 0.38 H AST 17 ALT 15 Alkaline Phosphatase 69 Total Protein 6.9 Albumin 3.9 Globulin 3.0 Lipase 42 Urine Color Yellow Urine Clarity Clear Urine pH 7.0 Ur Specific [place] 1.005 Urine Protein 30 H Urine Glucose (UA) Normal Urine Ketones Negative Urine Occult Blood 25 H Urine Nitrite Negative Urine Bilirubin 1 H Urine Urobilinogen 1 H Ur Leukocyte Esterase 25 H Urine RBC 0 SEEN Urine WBC 0-5 SEEN Ur Squamous Epith Cells 0 SEEN Urine Bacteria 0 SEEN Hyaline Casts 5-10 SEEN Urine Mucus 0 SEEN Radiography Diagnostic Testing: Clinical Impression(s) from Imaging Studies Abdomen/Pelvis CT 02/08/24 08:11 IMPRESSION: Stable proctocolitis. Electronically Signed: Francesca Stock MD at 10:19 EST , Management Discussion w/another healthcare provider: Vice President Of Instruction ([facility] Colorectal call person) Discharge Plan Triage Chief Complaint: Abd Pain ED Provider: Chava Lira Dx/Rx/DC Orders Clinical Impression: Abdominal pain, acute, Status post partial colectomy Instructions: Abdominal Pain Prescriptions: New oxycodone-acetaminophen 5-325 mg tablet 1 tab PO Q6H PRN PRN (Reason: Pain) 3 Days Qty: 12 0RF No Action famotidine 20 mg tablet 20 mg PO BID PRN ibuprofen [Advil] 200 mg tablet 400 mg PO Q8H PRN (Reason: pain) multivitamin [Daily Multi-Vitamin] Tablet 1 tab PO DAILY Florajen Women 15 billion cell capsule 1 cap PO DAILY [place]-3 350 mg-235 mg- 90 mg-597 mg capsule,delayed release(DR/EC) 1 cap PO DAILY glucosamine-chondroitin [Osteo Bi-Flex] 250-200 mg tablet 1 tab PO DAILY Primary Care Provider: Kaitlin Torres Referrals: Kaitlin Torres MD [Primary Care Provider] - Activity Restrictions/Additional Instructions: If persistent symptoms please call your colorectal surgeon tomorrow. Please return if worsening or concerns. Print Language: Bulgarian Disposition Disposition: Home, Self Care
[2024-02-08] MEDS: 0.9% Normal Saline (1000mL) 1,000 ML 999 ML IV (08:25)
[2024-02-08] MEDS: Ondansetron 4 MG/2 ML Vial IV (08:25)
[2024-02-08] MEDS: Morphine 4 MG/ML Syringe IV (08:25)
[2024-02-08 08:35] LABS: Bacteria 0 SEEN /hpf (None Seen); Mucous, Urine 0 SEEN /hpf (<or=2+); Red Blood Cells-Urine 0 SEEN /hpf (0-5); Squamous Epithelial Cells - UA 0 SEEN /hpf (5-10)
[2024-02-08 08:41] LABS: Absolute Lymphocyte Count 2.06 X10^3/uL (0.83-4.51); Absolute Neutrophil Count 6.2 X10^3/uL (2.0-7.7); Basophil# 0.06 X10^3/uL; Basophil% 0.6 % (0-1); Eosinophil# 0.09 X10^3/uL; Eosinophils% 0.9 % (0-5); Hematocrit 40.3 % (37-47); Hemoglobin 13.5 g/dL (12.0-15.0); Lymphocyte # 2.06 X10^3/ul (0.83-4.51); Lymphocyte % 21.3 % (19-41); Mean Corp Hgb Conc 33.5 g/dL (32-36); Mean Corpuscular Hgb 30.1 pg (27.0-32.0); Mean Platelet Vol. 10.8 fl (6.2-12.0); Monocyte# 1.25 X10^3/uL; Monocyte% 12.9 % (0-10); NRBC Flagged by Analyzer 0 % (0-5); Neutrophil # 6.19 X10^3/uL (2.7-7.7); Platelet Count 337 K/mm3 (150-450); RBC Distribution Width SD 42.6 fl (35.1-43.9); Red Blood Count 4.48 M/mm3 (4.2-5.4); White Blood Count 9.7 K/mm3 (4.4-11.0)
[2024-02-08 08:45] LABS: Color, Urine Yellow (Yellow); Glucose, Dipstick Normal (Normal); Ketone-Dipstick Negative (Negative); Leukocyte Esterase-Dipstick 25 /ul (Negative); Nitrite-Dipstick Negative (Negative); Occult Blood-Urine 25 /ul (Negative); Protein-Dipstick 30 mg/dl (Negative); Specific Gravity, Urine 1.005 (1.002-1.030); Urine Clarity Clear (Clear); Urine Urobilinogen 1 mg/dl (Normal)
[2024-02-08 08:46] LABS: Urine Bilirubin Dipstick 1 mg/dL (Negative)
[2024-02-08 08:53] LABS: Hyaline Cast 5-10 SEEN /lpf (0-5)
[2024-02-08 08:54] LABS: White Blood Cells 0-5 SEEN /hpf (0-5)
[2024-02-08 08:56] LABS: AST(SGOT) 17 U/L (15-37); Alanine Aminotransfer ALT/SGPT 15 U/L (13-56); Albumin, Serum 3.9 g/dL (3.2-5.0); Alkaline Phosphatase 69 U/L (45-117); Anion Gap 7 (5-15); BUN 8 mg/dL (7-18); BUN/Creat Ratio 9.8 RATIO (10-20); Bilirubin, Direct 0.38 mg/dL (0.00-0.30); Calcium,Total 9.2 mg/dL (8.5-10.1); Chloride 106 mmol/L (98-107); Creatinine, Serum 0.82 mg/dL (0.55-1.02); EST Glomerular Filtration Rate 76 mL/min (>60); Est Glom Filt Rate - Afr Amer 93 mL/min (>60); Estimated Creatinine Clearance 65.36 ml/min; Glucose 96 mg/dL (74-106); Lipase 42 U/L (13-75); Potassium 3.8 mmol/L (3.5-5.1); Protein, Total 6.9 g/dL (6.4-8.2); Sodium Level 140 mmol/L (136-145)
[2024-02-08 09:42] VITALS: BP 104/78; PULSE 64; RESP 18; O2SAT 98
[2024-02-08 11:00] VITALS: BP 128/76; PULSE 64; RESP 18; O2SAT 98
[2024-02-08 12:06] VITALS: BP 127/64; PULSE 64; RESP 18; TEMP 36.6; O2SAT 99
== END 2024-02-08 12:07 | disposition home or self-care (01) ==
PROVIDERS: Emergency Provider Emergency Medicine; PCP Internal Medicine; Visit Provider Emergency Medicine
DX: R10.2 Pelvic and perineal pain (principal); R19.7 Diarrhea, unspecified; Z87.19 Personal history of other diseases of the digestive system; Z90.49 Acquired absence of other specified parts of digestive tract; Z86.0100 Personal history of colon polyps, unspecified
CPT/HCPCS: 74177; 80048; 80076; 81001; 83690; 85025; 96361; 96374; 96375; 99283; J7030; Q9967; A4216; J2405

== ENCOUNTER 2024-03-08 14:02 | Emergency (ER) | payer BC, SELFPAY ==
[2024-03-08] VITALS (8 sets, daily range): BP systolic 110–131; BP diastolic 64–94; PULSE 65–75; RESP 12–21; TEMP 36.6–37.2; O2SAT 98–100; BMI 21.6
--- NOTE | 2024-03-08 14:25 | ED.RN ---
Dr. Mcguire bedside
--- NOTE | 2024-03-08 14:33 | EKG12_ITS ---
Test Reason : DYSP Blood Pressure : */* mmHG Vent. Rate : 72 BPM Atrial Rate : 72 BPM P-R Int : 164 ms QRS Dur : 80 ms QT Int : 422 ms P-R-T Axes : 47 -8 45 degrees QTcB Int : 462 ms Normal sinus rhythm Normal ECG Confirmed by Bhavesh Matos ([id number]), legal editor RICARDO FERRO ([id number]) on 03/10/2024 5:56:36 AM Referred By: Confirmed By: Bhavesh Matos
--- NOTE | 2024-03-08 14:33 | EDS_ITS ---
HPI History of Present Illness Chief Complaint: Allergic Reaction Informant: patient, spouse/S.O. and PCP Narrative Narrative: Patient is a started new chemotherapy today, a new pill this morning about 6 or 8 hours ago, and a new IV infusion that went for about 2 hours. Near the end of the infusion she started having some throat tightness, little dyspnea that she thinks is a result of the throat symptoms no chest symptoms, tingling in her hands and cramping in her hands, and some lightheadedness. Infusion was stopped and she was given hydrocortisone and Benadryl. She is feeling improved now but still has the hand symptoms with cramping difficulty moving her fingers due to that, some tingling in her fingers. She has no neck/throat symptoms anymore or dyspnea. She has a little bit of tingling in her lower lip but she denies any swelling of that or her tongue. She had no rash or pruritus or edema of her legs or syncope. [facility] Medical History (Updated 03/08/24 @ 19:[address] Francisco Mcguire MD) History of colon cancer, stage III Clostridium difficile infection Infectious colitis Acid reflux Home Medications ?Medication ?Instructions ?Recorded ?Last Taken ?Type Lactobacillus acidophilus and 1 cap PO DAILY 02/08/24 02/07/24 History rhamnosus 15 billion cell capsule (Florajen Women) famotidine 20 mg tablet 20 mg PO BID PRN 02/08/24 02/08/24 History glucosamine-chondroitin 250 mg-200 1 tab PO DAILY 02/08/24 02/07/24 History mg tablet (Osteo Bi-Flex) ibuprofen 200 mg tablet (Advil) 400 mg PO Q8H PRN pain 02/08/24 02/07/24 History multivitamin (Daily Multi-Vitamin 1 tab PO DAILY 02/08/24 02/07/24 History tablet) omega 3 350 mg-dha 235 mg-epa 90 1 cap PO DAILY 02/08/24 02/07/24 History mg-fish oil 597 mg capsule,delay rel ([place]-3) oxycodone-acetaminophen 5 mg-325 1 tab PO Q6H PRN PRN Pain 3 days 02/08/24 Unknown Rx mg tablet #12 TABLETS Allergy/AdvReac Type Severity Reaction Status Date / Time No Known Allergies Allergy Verified 03/08/24 14:06 Surgical History History of colonoscopy with polypectomy History of colon surgery Social History (Updated 03/08/24 @ 14:[address] Francisco Mcguire MD) household members: spouse Smoking Status: Never smoker ROS ROS ED Constitutional Constitutional ED: Denies chills or fever(s) Eyes Eyes: Denies change in vision or diplopia ENT ENT ED: Reports as per HPI and throat swelling; Denies rhinorrhea or sore throat Cardiovascular Cardiovascular: Reports lightheadedness; Denies chest pain, diaphoresis, leg edema, palpitations or syncope Respiratory/Chest Respiratory/Chest: Reports dyspnea; Denies cough Gastrointestinal Gastrointestinal: Denies abdominal pain, diarrhea, nausea or vomiting Genitourinary Genitourinary ED: Denies dysuria or hematuria Musculoskeletal Musculoskeletal: Reports other Details: cramping/spasming hands/fingers bilat ; Denies back pain or neck pain Integumentary Denies abscess or rash Neurologic Neurologic: Reports paresthesias; Denies headache(s) or weakness EXAM Physical Exam Const Vital Signs: 03/08/24 14:03 03/08/24 14:10 03/08/24 15:10 Temperature 98.9 F Temperature Source Temporal Pulse Rate 70 75 66 Respiratory Rate 16 16 16 Blood Pressure 131/77 H 131/80 H 110/72 Blood Pressure Mean 95 97 84 Pulse Ox 100 100 98 Oxygen Delivery Method Room Air Room Air Room Air 03/08/24 16:00 03/08/24 17:00 03/08/24 18:00 Temperature Temperature Source Pulse Rate 65 66 70 Respiratory Rate 12 14 12 Blood Pressure 122/94 H Blood Pressure Mean 103 Pulse Ox 100 99 Oxygen Delivery Method Nasal Cannula 03/08/24 19:00 Temperature Temperature Source Pulse Rate 72 Respiratory Rate 21 H Blood Pressure 114/71 Blood Pressure Mean 85 Pulse Ox 98 Oxygen Delivery Method Positive well nourished and well developed General Appearance ED: well developed and NAD HEENT Reports moist mucous membranes HEENT Narrative: no stridor. no angioedema tongue or lips. normocephalic and atraumatic Eyes PERRL and EOMs intact bilaterally Neck full ROM and supple Resp normal respiratory effort and clear to auscultation bilaterally Cardio regular rate, regular rhythm and no murmurs Rate: Negative for bradycardia or tachycardic GI non-tender and non-distended Auscultation: normoactive bowel sounds Palpation: soft Back/Spine no CVA tenderness General Back: other FROM Extremity normal to inspection Extremity Narrative: From difficulty moving fingers due to cramping General Extremety ED: Negative for edema, pulses abnormal or tenderness General Extremity: Negative for edema or pulses abnormal Neuro oriented x3, CN's II-XII intact bilaterally and no sensory deficits noted Sensorium / Orientation: awake and alert Motor Exam: general weakness Psych mental status grossly normal Skin no rashes or lesions noted and no wounds MDM MDM MDM Narrative Medical decision making narrative: Because of her cramping of her extremities and tingling, obtain magnesium and electrolyte levels, her magnesium level is normal potassium level is a little low, so we will replace that while observing her. Spoke with her oncologist who also advised given her 2 g of magnesium over 2 hours as well. On reexamination after patient has been here for 1-2 hours she is doing better, before replacing any of her electrolytes her cramping/tingling is better and she was able to walk to the bathroom and back. Plan is to continue to observe her until the Benadryl is mostly worn off, 4-6 hours after was given. For this reason, patient was placed in the ED observation at 1640, about 2.5 hours into her ED stay. At 1945, the patient was taken off of observation and discharged. She is doing well without recurrent symptoms, and stable for discharge home. Oncology to check on her by phone tomorrow, she was advised to continue her new oral medication tomorrow holding it tonight. Dr. Donald preferred not to continue steroids for now. Lab Data Attestation: I reviewed the patient's lab results. Labs: Laboratory Results - last 24 hr 03/08/24 14:53 Sodium 139 Potassium 3.4 L Chloride 107 Carbon Dioxide 26.0 Anion Gap 6 BUN 12 Creatinine 0.67 Estim Creat Clear Calc 79.03 Est GFR (MDRD) Af Amer 117 Est GFR (MDRD) Non-Af 96 BUN/Creatinine Ratio 18.0 Glucose 142 H Calcium 9.2 Magnesium 2.0 Rhythm Strip Rhythm Strip: Sinus Rhythm Rate: 75 Ectopy: None EKG Initial EKG: Attestation: I personally reviewed and interpreted this EKG as follows: Interpretation: Sinus Rhythm and No Acute Injury Pattern Comments: Nml axis & intervals; nml EKG Management Discussion w/another healthcare provider: Automotive Sales Specialist (Oncology Dr. Donald) Discharge Plan Triage Chief Complaint: Allergic Reaction ED Provider: Francisco Mcguire Dx/Rx/DC Orders Clinical Impression: Allergic reaction caused by a drug, Acute hypokalemia Instructions: ED ADVERSE DRUG REACTION Allergic Prescriptions: No Action famotidine 20 mg tablet 20 mg PO BID PRN ibuprofen [Advil] 200 mg tablet 400 mg PO Q8H PRN (Reason: pain) multivitamin [Daily Multi-Vitamin] Tablet 1 tab PO DAILY Florajen Women 15 billion cell capsule 1 cap PO DAILY [place]-3 350 mg-235 mg- 90 mg-597 mg capsule,delayed release(DR/EC) 1 cap PO DAILY glucosamine-chondroitin [Osteo Bi-Flex] 250-200 mg tablet 1 tab PO DAILY oxycodone-acetaminophen 5-325 mg tablet 1 tab PO Q6H PRN PRN (Reason: Pain) 3 Days Qty: 12 0RF Primary Care Provider: Kaitlin Torres Referrals: Kaitlin Torres MD [Primary Care Provider] - Alvin Donald DO [Med Staff - Active Staff] - (Office to contact you tomorrow for further details) Print Language: Chinese Disposition Disposition: Home, Self Care
[2024-03-08 15:48] LABS: Anion Gap 6 (5-15); BUN 12 mg/dL (7-18); Calcium,Total 9.2 mg/dL (8.5-10.1); Chloride 107 mmol/L (98-107); Creatinine, Serum 0.67 mg/dL (0.55-1.02); EST Glomerular Filtration Rate 96 mL/min (>60); Est Glom Filt Rate - Afr Amer 117 mL/min (>60); Estimated Creatinine Clearance 79.03 ml/min; Glucose 142 mg/dL (74-106); Potassium 3.4 mmol/L (3.5-5.1); Sodium Level 139 mmol/L (136-145)
[2024-03-08] MEDS: Potassium Chloride 10mEq/100mL 10 MEQ/100 ML IV.SOLN. 100 MEQ IV BOLUS (16:21)
[2024-03-08] MEDS: Magnesium Sulfate 2 GM in Dextrose 5%-Water (100mL Bag) 100 ML IV (16:50)
== END 2024-03-08 19:56 | disposition home or self-care (01) ==
PROVIDERS: Emergency Provider Emergency Medicine; PCP Internal Medicine; Visit Provider Emergency Medicine
DX: E87.6 Hypokalemia (principal); C18.9 Malignant neoplasm of colon, unspecified; R06.00 Dyspnea, unspecified; T45.1X5A Adverse effect of antineoplastic and immunosuppressive drugs, initial encounter; Z86.19 Personal history of other infectious and parasitic diseases; Z87.19 Personal history of other diseases of the digestive system; Z79.899 Other long term (current) drug therapy
CPT/HCPCS: 80048; 83735; 93005; 96365; 96366; 96368; 99285; A4216